=== PATIENT | female | born 1965 | race Caucasian/White ===

== ENCOUNTER 2016-08-10 16:40 | Emergency (ER) | payer OTHER ==
[~2016-08-10] VITALS: Ht 162.6 cm; Wt 97.5 kg
[2016-08-10] MEDS ORDERED: HYDROXYZINE HYD25 MG PO (16:58)
[2016-08-10] MEDS ORDERED: SYN2 PO (16:59)
[2016-08-10] MEDS ORDERED: ZOLOFT50 MG PO (17:00)
[2016-08-10] MEDS ORDERED: XOPENEX1.25 MG/3 NEB (17:01)
[2016-08-10] MEDS ORDERED: 8 HOUR650 MG PO (17:01)
[2016-08-10 17:08] LABS: BASOPHIL % 0.4 % (0-2); PLATELET COUNT 191 x10^3mcL (130-400)
[2016-08-10 17:10] LABS: RED CELL DISTRIBUTION WIDTH 15.6 % (11.5-14.5)
[2016-08-10 17:17] LABS: CALCIUM 8.7 mg/dL (8.5-10.1); CARBON DIOXIDE 28.5 mmol/L (21-32); CHLORIDE SERUM 103 mmol/L (98-107); CREATININE SERUM 0.8 mg/dL (0.6-1.0); GFR1 > 60 mL/min; GLUCOSE SERUM 119 mg/dL (74-106); SODIUM SERUM 138 mmol/L (136-145)
[2016-08-10 17:22] LABS: ALKALINE PHOSPHATASE 74 U/L (46-116); ALT/SGPT 27 U/L (14-59); AST/SGOT 19 U/L (15-37); BILIRUBIN TOTAL 0.4 mg/dL (0.20-1.00); TOTAL PROTEIN, SERUM 7.7 g/dL (6.4-8.2)
[2016-08-10 19:21] VITALS: BP 142/80
== END 2016-08-10 19:21 | disposition home or self-care (01) ==
LOC: ED 16:40
DX: S29.011A Strain of muscle and tendon of front wall of thorax, initial encounter (principal); M94.0 Chondrocostal junction syndrome [Tietze]; B34.9 Viral infection, unspecified; E03.9 Hypothyroidism, unspecified; X58.XXXA Exposure to other specified factors, initial encounter; Y93.89 Activity, other specified; Y92.89 Other specified places as the place of occurrence of the external cause; Y99.8 Other external cause status
CPT/HCPCS: 83880; J1885; J2405; Q0092